=== PATIENT | male | born 1975 | race Caucasian/White ===

== ENCOUNTER 2016-08-04 20:18 | Emergency (ER) | payer BC ==
--- NOTE | ~2016-08-04 | ER ---
PATIENT'S NAME: PRINCESS ZENDEJAS [facility] AGE: 40 Y [address] ROOM: [place] [id number] LOCATION: ED ADMIT DATE: 08/04/2016 ER/Outpatient Report DISCHARGE DATE: 08/04/2016 FAMILY PHYSICIAN: PHYSICIAN, NO ATTENDING PHYSICIAN: Jorge Baptiste Time of Arrival: 2018 hours. Time of Evaluation: 2024 hours. CHIEF COMPLAINT: Nausea, vomiting. HISTORY OF PRESENT ILLNESS: This is a 40-year-old male, who presents to the ER, who states he drank too much last night and now today has had really bad hangover. He states he has had nausea, and he has not been able to keep any fluids down because he has been vomiting. He has had no diarrhea. No fever or chills. No other problems at this time. ALLERGIES: NO KNOWN ALLERGIES. MEDICATIONS: Please see medication list in nurse's notes. PAST MEDICAL HISTORY: Depression. PAST SURGICAL HISTORY: Hernia. SOCIAL HISTORY: He drinks alcohol on occasional weekends. Denies any smoking use. REVIEW OF SYSTEMS: All systems were reviewed and were negative with the exception of those discussed in the HPI. PHYSICAL EXAMINATION: VITAL SIGNS: Height 6 feet stated, weight 88.4 kg taken, blood pressure is 140/93, pulse 78, respirations 16, temperature 98 degrees tympanically, and saturations 97% on room air. Darian Coma Score is 15. GENERAL: An alert, well-developed male, in no acute distress, but he does appear not to feel well. HEENT: Head: Normocephalic. Eyes: Pupils are equal and reactive to light. PATIENT'S NAME: PRINCESS ZENDEJAS [facility] AGE: 40 Y [address] ROOM: [place] [id number] LOCATION: ED ADMIT DATE: 08/04/2016 ER/Outpatient Report DISCHARGE DATE: 08/04/2016 FAMILY PHYSICIAN: PHYSICIAN, NO ATTENDING PHYSICIAN: Jorge Baptiste He does have tacky mucous membranes. LUNGS: Clear to auscultation bilaterally. No wheezes or crackles. HEART: Regular rate and rhythm. ABDOMEN: Soft. He has no tenderness. Good bowel sounds throughout. No masses are palpated. EXTREMITIES: No clubbing, cyanosis, or edema. He has full range of motion of all limbs. LABORATORY DATA AND X-RAYS: None were done. IMPRESSION: Nausea and vomiting secondary to hangover. ASSESSMENT AND PLAN: We did start an IV and gave him a total of 2 L of IV fluids and 4 mg of Zofran. The patient did tolerate this well. He had no further emesis while he was here. We will dismiss him to home with a prescription for Zofran to use as directed. He needs to continue to push fluids small amounts at a time and follow up with his primary care physician if needed. The patient understands and agrees with care. YOLANDA HALL PA-C FOR MD LYDIA BLAKE/ashlee /[id number] d: t: 08/07/16 1218, OUTPATIENT REPORT
== END 2016-08-04 21:49 | disposition disaster alternative care site (69) ==
LOC: GMED 20:18
DX: F10.129 Alcohol abuse with intoxication, unspecified (principal); R11.2 Nausea with vomiting, unspecified; F32.9 Major depressive disorder, single episode, unspecified; Z98.890 Other specified postprocedural states; Z79.899 Other long term (current) drug therapy
CPT/HCPCS: J2405; J7030